=== PATIENT | male | born 1985 | race Two or more races ===

== ENCOUNTER 2017-11-17 19:51 | Emergency (ER) | payer MEDICAID ==
[~2017-11-17] VITALS: Ht 175.3 cm; Wt 80.5 kg
[2017-11-17 20:07] VITALS: BP 138/74
[2017-11-17] MEDS ORDERED: PSEU-259 PO (20:18)
[2017-11-17] MEDS ORDERED: AMOX-419 PO (20:18)
== END 2017-11-17 20:28 | disposition home or self-care (01) ==
LOC: ER 19:53
DX: J32.1 Chronic frontal sinusitis (principal)
CPT/HCPCS: 99283